=== PATIENT | female | born 1960 | race Caucasian/White ===

== ENCOUNTER → 2024-02-15 | Outpatient (CLI) | payer MEDICARE, MEDICAID ==
[~2024-02-15] MED LIST: ASPIRIN E.C. 8181 MG PO; BREO IH; CALCITRIOL PO; CARDIZEM CD 24240 MG PO; CEPHALEXIN500 M1 PO; COZAAR 50MG50 MG/TAB PO; DESYREL 50MG50 MG PO; EFFEXOR 75M75 MG/TAB PO; ELIQUIS 5MG PO; ESTRACE 1MG1 MG/TAB PO; FLEXERIL 1010 MG/TAB PO; GLUCOPHAGE500 MG/TAB PO; IMDUR 30MG30 MG/TAB PO; K-DUR20 MEQ PO; LASIX 80MG TABL80 MG PO; LIPITOR 10MG10 MG PO; LIPITOR 80MG80 MG PO; LOPRESSOR 225 MG/TAB PO; NEURONTIN300 MG/CAP PO; NORCO 325 MG-51 TAB PO; PREDNISONE50 MG PO; PRILOSEC 20MG20 MG PO; PROTONIX 40MG T40 MG PO; TAMIFLU 75MG75 MG PO; TOPROL XL 25MG25 MG PO; WELLBUTRIN XL150 MG PO; XANAX 0.5MG0.5 MG PO; ZITHROMAX Z PA250 MG PO
== END ==
LOC: COL.RAD 13:58
DX: I51.7 Cardiomegaly (principal); J43.9 Emphysema, unspecified; I34.81 Nonrheumatic mitral (valve) annulus calcification; I70.0 Atherosclerosis of aorta